=== PATIENT | male | born 1970 | race African-American/Black ===

== ENCOUNTER 2018-10-24 17:37 | Emergency (ER) | payer OTHER ==
[~2018-10-24] VITALS: Ht 177.8 cm; Wt 79.4 kg
[~2018-10-24 17:37] MED LIST: NOHOMEMEDICATIONS; NORCO 5-325 TA1 EACH PO
[2018-10-24] MEDS ORDERED: NORCO 5-325 TA1 EAC1 PO (19:04)
[2018-10-24 19:20] VITALS: BP 106/77
== END 2018-10-24 19:51 | disposition home or self-care (01) ==
LOC: ER 17:37
DX: M25.561 Pain in right knee (principal); F17.210 Nicotine dependence, cigarettes, uncomplicated; W01.0XXA Fall on same level from slipping, tripping and stumbling without subsequent striking against object, initial encounter; Y92.89 Other specified places as the place of occurrence of the external cause; Y93.89 Activity, other specified; Y99.8 Other external cause status

== ENCOUNTER 2018-11-05 13:47 | Emergency (ER) | payer BC ==
[~2018-11-05] VITALS: Ht 177.8 cm; Wt 79.4 kg
[~2018-11-05 13:47] MED LIST changes: +NORCO 5-325 TA1 EAC1 PO
[2018-11-05 13:57] VITALS: BP 107/74
[2018-11-05] MEDS ORDERED: NAPROSYN500 MG PO (15:26)
[2018-11-05] MEDS ORDERED: TRAMADOL 50 MG50 MG PO (15:26)
== END 2018-11-05 15:25 | disposition home or self-care (01) ==
LOC: ER 13:47
DX: S83.8X1A Sprain of other specified parts of right knee, initial encounter (principal); F17.210 Nicotine dependence, cigarettes, uncomplicated; X50.1XXA Overexertion from prolonged static or awkward postures, initial encounter; Y92.89 Other specified places as the place of occurrence of the external cause; Y99.0 Civilian activity done for income or pay; Y99.8 Other external cause status

== ENCOUNTER 2019-08-02 10:43 | Emergency (ER) | payer OTHER ==
[~2019-08-02] VITALS: Ht 177.8 cm; Wt 80.3 kg
[~2019-08-02 10:43] MED LIST changes: +NAPROSYN500 MG PO; +TRAMADOL 50 MG50 MG PO
[2019-08-02] MEDS ORDERED: MUCINEX600 MG PO (12:14)
[2019-08-02 12:24] VITALS: BP 124/86
== END 2019-08-02 12:25 | disposition home or self-care (01) ==
LOC: ER 10:43
DX: R05 Cough (principal); F17.210 Nicotine dependence, cigarettes, uncomplicated; Z20.828 Contact with and (suspected) exposure to other viral communicable diseases

== ENCOUNTER 2019-08-04 07:49 | Emergency (ER) | payer BC ==
[~2019-08-04] VITALS: Ht 177.8 cm; Wt 79.4 kg
[~2019-08-04 07:49] MED LIST changes: +MUCINEX600 MG PO
[2019-08-04 08:40] LABS: URINE BILIRUBIN NEGATIVE (Negative); URINE BLOOD NEGATIVE (Negative); URINE CLARITY CLEAR; URINE COLOR YELLOW; URINE GLUCOSE-RANDOM* NEGATIVE (Negative); URINE KETONES 1+ (Negative); URINE NITRITE-REFLEX NEGATIVE (Negative); URINE PROTEIN (DIPSTICK) NEGATIVE (Negative); URINE UROBILINOGEN 0.2 E.U./dl (0.2-1.0)
[2019-08-04 08:42] LABS: URINE LEUKOCYTES-REFLEX 1+ (Negative)
[2019-08-04 08:49] LABS: AMP/METHAMP Negative (Negative); BARBITURATES Negative (Negative); BENZODIAZEPINES Negative (Negative); COCAINE Negative (Negative); METHADONE Negative (Negative); OPIATES Negative (Negative); PCP Negative (Negative)
[2019-08-04 09:00] LABS: HEMATOCRIT 47.7 % (42.0-52.0); HEMOGLOBIN 15.9 gm/dL (14.0-18.0); MCH 29.4 pg (26.0-34.0); MCHC 33.3 g/dL (28.0-37.0); MCV 88.5 fL (80.0-100.0); PLATELET COUNT 191 thou/uL (150-400); RBC 5.39 mil/uL (4.50-6.00); RDW 13.7 % (10.5-14.5); WBC 2.7 thou/uL (4.0-11.0)
[2019-08-04 09:18] LABS: SQUAMOUS 0-3 Few /LPF (0-3)
[2019-08-04 09:19] LABS: BACTERIA-REFLEX None Seen /HPF (None Seen); CASTS None Seen /LPF (None Seen); MUCUS 4-6 Moderate strn/LPF (None Seen); URINE RBC None Seen /HPF (0-2); URINE WBC-REFLEX 0-5 Rare /HPF (0-5)
[2019-08-04 09:20] LABS: CRYSTALS None Seen /LPF (None Seen)
--- NOTE | 2019-08-04 09:33 | EKG ---
[facility] [place] [address] ELECTROCARDIOGRAM REPORT Name: KEVINANDIE EMILY Room #: REG [facility].#: [id number] Admission: 08/04/19 Attend Phys: Discharge: Date of : 70 Report #: [id number] THIS REPORT FOR: cc: SIMON - No family physician/PCP SIMON - [place] family physician/PCP Stan Murphy MD [facility] THIS REPORT FOR: //name// [facility] ED Test Date: 2019-08-04 Test Time: 08:29:16 Pat Name: ANDIE BROWN Department: Room: Gender: [place] Boner[facility] 1970 Requested By: Kobi Her Order Number: [id number] MD: Stan Murphy Measurements Intervals [place] Rate: 60 P: 6 [place]: 137 QRS: -35 QRSD: 98 T: 25 QT: 416 QTc: 416 Interpretive Statements Sinus rhythm Left axis deviation No significant abnormality No previous ECG available for comparison Electronically Signed On 08-04-2019 9:31:50 CDT by Stan Murphy [email or web address] <ELECTRONICALLY SIGNED> By: Stan Murphy MD, [facility] 08/04/1931 8 8 Stan Murphy MD, [facility] /EPI
[2019-08-04 09:59] LABS: ANION GAP 7 mmol/L (7-16); BUN 10 mg/dL (7-18); CALCIUM 8.2 mg/dL (8.5-10.1); CHLORIDE 102 mmol/L (98-107); CO2 28 mmol/L (21-32); CREATININE 0.9 mg/dL (0.7-1.3); GLUCOSE 89 mg/dL (74-106); POTASSIUM 4.3 mmol/L (3.5-5.1); SODIUM 137 mmol/L (136-145)
[2019-08-04 10:10] LABS: ALBUMIN 3.6 g/dL (3.4-5.0); LIPASE 185 U/L (73-393); SGOT 20 U/L (15-37); SGPT 23 U/L (30-65); TOTAL BILIRUBIN 0.4 mg/dL (<0.1-1.0); TOTAL PROTEIN 7.3 g/dL (6.4-8.2); TROPONIN-I <0.06 ng/mL (<0.06)
[2019-08-04 10:17] LABS: ABSOLUTE NEUTROPHILS 0.9 thou/uL (1.4-8.2); ATYPICAL LYMPHS 4 %
[2019-08-04 10:18] LABS: ANISOCYTOSIS SLIGHT; POIKILOCYTOSIS SLIGHT
[2019-08-04 11:34] VITALS: BP 119/87
== END 2019-08-04 11:37 | disposition home or self-care (01) ==
LOC: ER 07:49
PROVIDERS: Emergency Medicine
DX: D70.9 Neutropenia, unspecified (principal); R19.7 Diarrhea, unspecified; R11.0 Nausea; F17.210 Nicotine dependence, cigarettes, uncomplicated

== ENCOUNTER 2020-05-15 22:46 | Emergency (ER) | payer OTHER ==
[~2020-05-15] VITALS: Ht 177.8 cm; Wt 79.4 kg
[2020-05-15 23:59] LABS: ABSOLUTE NEUTROPHILS 1.5 thou/uL (1.4-8.2); BASOPHILS 0.7 % (0.0-2.0); EOSINOPHILS 0.7 % (0.0-3.0); HEMATOCRIT 41.8 % (42.0-52.0); HEMOGLOBIN 13.6 gm/dL (14.0-18.0); LYMPHOCYTES 53.2 % (24.0-44.0); MCH 29.2 pg (26.0-34.0); MCHC 32.6 g/dL (28.0-37.0); MCV 89.5 fL (80.0-100.0); MONOCYTES 11.5 % (1.0-8.0); PLATELET COUNT 223 thou/uL (150-400); POLYS 33.9 % (36.0-66.0); RBC 4.67 mil/uL (4.50-6.00); RDW 13.5 % (10.5-14.5); WBC 4.4 thou/uL (4.0-11.0)
[2020-05-16 00:04] LABS: ANION GAP 9 mmol/L (7-16); BUN 15 mg/dL (7-18); CALCIUM 8.9 mg/dL (8.5-10.1); CHLORIDE 103 mmol/L (98-107); CO2 29 mmol/L (21-32); GLUCOSE 101 mg/dL (74-106); POTASSIUM 4.4 mmol/L (3.5-5.1); SODIUM 141 mmol/L (136-145)
[2020-05-16 00:12] LABS: ALBUMIN 3.8 g/dL (3.4-5.0); SGOT 14 U/L (15-37); SGPT 23 U/L (16-63); TOTAL BILIRUBIN 0.4 mg/dL (0.2-1.0); TOTAL PROTEIN 7.2 g/dL (6.4-8.2); TROPONIN-I <0.06 ng/mL (<0.06)
[2020-05-16 00:56] VITALS: BP 100/68
--- NOTE | 2020-05-16 07:21 | EKG ---
[address] [address] [place] [address] ELECTROCARDIOGRAM REPORT Name: ANDIE BROWN [facility] [id number] Admission: 05/15/20 Attend Phys: Discharge: 05/16/20 Date of : 70 Report #: [id number] [facility] ED Test Date: 2020-05-15 Test Time: 23:46:44 Pat Name: ANDIE BROWN Department: Room: Gender: Implementation Consultant: jeffery : 1970 Requested By: Damion Haro Order Number: [id number] MD: Dani Dick Measurements Intervals [place] Rate: 68 P: 47 [place]: 132 QRS: -17 QRSD: 108 T: 18 QT: 408 QTc: 434 Interpretive Statements Sinus rhythm Borderline left axis deviation J Point elev, probable normal early repol pattern Compared to ECG 08/04/2019 08:29:16 ST (T wave) deviation now present Electronically Signed On 05-16-2020 7:20:58 [employer]ILLING [employer] SERVICE REPRESENTATIVE by Dani Dick [email or web address] <ELECTRONICALLY SIGNED> By: Dani Dick MD, [facility] 05/16/2020 45 45 Dani Dick MD, FACC /EPI
== END 2020-05-16 00:57 | disposition home or self-care (01) ==
LOC: ER 22:46
PROVIDERS: Emergency Medicine
DX: R53.83 Other fatigue (principal); F17.210 Nicotine dependence, cigarettes, uncomplicated

== ENCOUNTER 2020-09-08 19:24 | Emergency (ER) | payer OTHER ==
[~2020-09-08] VITALS: Ht 177.8 cm; Wt 74.8 kg
[2020-09-08 20:08] LABS: ABSOLUTE NEUTROPHILS 4.2 thou/uL (1.4-8.2); BASOPHILS 0.5 % (0.0-2.0); EOSINOPHILS 0.1 % (0.0-3.0); HEMATOCRIT 45.9 % (42.0-52.0); MCH 29.9 pg (26.0-34.0); MCHC 32.7 g/dL (28.0-37.0); MCV 91.5 fL (80.0-100.0); MONOCYTES 7.8 % (1.0-8.0); PLATELET COUNT 207 thou/uL (150-400); POLYS 70.6 % (36.0-66.0); RBC 5.02 mil/uL (4.50-6.00); RDW 13.7 % (10.5-14.5); WBC 5.9 thou/uL (4.0-11.0)
[2020-09-08 20:12] LABS: ANION GAP 7 mmol/L (7-16); BUN 16 mg/dL (7-18); CALCIUM 8.8 mg/dL (8.5-10.1); CHLORIDE 105 mmol/L (98-107); CO2 29 mmol/L (21-32); CREATININE 0.9 mg/dL (0.7-1.3); GLUCOSE 86 mg/dL (74-106); POTASSIUM 4.2 mmol/L (3.5-5.1); SODIUM 141 mmol/L (136-145)
[2020-09-08 20:22] LABS: ALBUMIN 4.1 g/dL (3.4-5.0); SGOT 19 U/L (15-37); SGPT 23 U/L (30-65); TOTAL BILIRUBIN 0.4 mg/dL (0.2-1.0); TOTAL PROTEIN 7.9 g/dL (6.4-8.2); TROPONIN-I <0.06 ng/mL (<0.06)
[2020-09-08 21:40] VITALS: BP 115/76
--- NOTE | 2020-09-09 07:13 | EKG ---
[address] [address] [facility] [place] [address] ELECTROCARDIOGRAM REPORT Name: ANDIE BROWN [id number] Admission: 09/08/20 Attend Phys: Discharge: 09/08/20 Date of : 70 Report #: [id number] [facility] ED Test Date: 2020-09-08 Test Time: 20:33:52 Pat Name: ANDIE BROWN Department: Room: Gender: M Cardiology Physician Assistant: : 1970 Requested By: Damion Haro Order Number: [id number] MD: Dani Dick Measurements Intervals [place] Rate: 60 P: 40 [place]: 134 QRS: -32 QRSD: 105 T: 18 QT: 432 QTc: 432 Interpretive Statements Sinus rhythm Left axis deviation ST elev, probable normal early repol pattern Compared to ECG 05/15/2020 23:46:44 ST (T wave) deviation now present Electronically Signed On 09-09-2020 7:13:43 CDT by Dani Dick [email or web address] <ELECTRONICALLY SIGNED> By: Dani Dick MD, [facility] 09/09/20712 32 32 Dani Dick MD, FACC /EPI
== END 2020-09-08 21:40 | disposition home or self-care (01) ==
LOC: ER 19:24
PROVIDERS: Emergency Medicine
DX: R07.89 Other chest pain (principal); F17.210 Nicotine dependence, cigarettes, uncomplicated; Z98.890 Other specified postprocedural states